=== PATIENT | male | born 2000 | race Caucasian/White ===

== ENCOUNTER 2018-07-09 08:26 | Emergency (ER) | payer OTHER ==
[2018-07-09] MEDS: KETOROLAC 60 MG INJ IM (10:49)
[2018-07-09] MEDS: CEFAZOLIN 1 GM INJ IM (12:37)
== END 2018-07-09 13:35 | disposition home or self-care (01) ==
LOC: FTE 08:26
DX: S92.422A Displaced fracture of distal phalanx of left great toe, initial encounter for closed fracture (principal); W20.8XXA Other cause of strike by thrown, projected or falling object, initial encounter; Y92.9 Unspecified place or not applicable
CPT/HCPCS: 11740; 73660; 96372; 99284-25